=== PATIENT | male | born 1955 | race Caucasian/White ===

== ENCOUNTER → 2017-05-28 | Outpatient (CLI) | payer BC ==
[~2017-05-28] MED LIST: ACET-1256 PO; ASPEC81 PO; CLB/200 PO; OXYSR10 PO; RXC5 PO; SNK PO
== END | disposition home or self-care (01) ==
LOC: C.LAB 15:58
PROVIDERS: ATTEND Urology
DX: Z12.5 Encounter for screening for malignant neoplasm of prostate (principal)